=== PATIENT | female | born 1950 | race Caucasian/White ===

== ENCOUNTER → 2018-12-26 11:46 | Outpatient (CLI) | payer MEDICARE, SELFPAY ==
[2018-12-26 12:12] LABS: Influenza A and B by PCR Rapid Negative (Negative)
== END ==
PROVIDERS: Family Provider Family Medicine; PCP Family Medicine; Visit Provider Physician Assistant
DX: R68.89 Other general symptoms and signs (principal)
CPT/HCPCS: 87400

== ENCOUNTER → 2019-03-10 12:14 | Outpatient (CLI) | payer MEDICARE, SELFPAY ==
--- NOTE | 2019-03-10 12:18 | DI.RAD.S_ITS ---
PROCEDURE: XR CERVICAL SPINE 2V OR 3V INDICATIONS: ongoing neck pain, worse TECHNIQUE: 3 view(s) of the cervical spine were acquired. COMPARISON: None. FINDINGS: Bones: No fractures or dislocations to the T1 level. There is a moderately severe degree of degenerative disc disease at C5-6 and C6-7, without subluxation. Facet osteoarthritis over these 3 segments also is moderate in severity. The lateral masses of C1 appear intact on the odontoid view. No suspicious bony lesions. Soft tissues: No prevertebral soft tissue swelling. IMPRESSION: Moderate to moderately severe degenerative disc disease and facet osteoarthritis along the middle third of the cervical spine, but no prior trauma is seen. Dictated by: Seth Baron M.D. on 03/10/2019 at 13:20 Approved by: Seth Baron M.D. on 03/10/2019 at 13:21
== END ==
PROVIDERS: PCP Nurse Practitioner Family; Visit Provider Nurse Practitioner Family
DX: M50.322 Other cervical disc degeneration at C5-C6 level (principal); M47.812 Spondylosis without myelopathy or radiculopathy, cervical region
CPT/HCPCS: 72040

== ENCOUNTER → 2019-03-15 12:11 | Outpatient (CLI) | payer MEDICARE, SELFPAY ==
--- NOTE | 2019-03-15 12:14 | DI.MG.S_ITS ---
BILATERAL DIGITAL SCREENING MAMMOGRAM 3D/2D WITH CAD: 03/15/2019 CLINICAL: Routine screening. Comparison is made to exams dated: 03/06/2017 mammogram, 01/24/2008 mammogram, and 07/08/2006 mammogram - [facility]. There are scattered fibroglandular elements in both breasts. Current study was also evaluated with a Computer Aided Detection (CAD) system. No significant masses, calcifications, or other findings are seen in either breast. There has been no significant interval change. IMPRESSION: NEGATIVE There is no mammographic evidence of malignancy. A 1 year screening mammogram is recommended. This exam was interpreted at Station ID: [id number]. NOTE: For mammograms, a report in lay terms will be sent to the patient. Approximately 15% of breast malignancies will not be visualized mammographically. In the management of a palpable breast mass, a negative mammogram must not discourage biopsy of a clinically suspicious lesion. Electronically Signed By: Seferino [email or web address]:03/15/2019 16:58:33 letter sent: Normal Exam ACR BI-RADS Category 1: Negative [id number]
== END ==
PROVIDERS: PCP Nurse Practitioner Family; Visit Provider Nurse Practitioner Family
DX: Z12.31 Encounter for screening mammogram for malignant neoplasm of breast (principal)
CPT/HCPCS: 77063; 77067

== ENCOUNTER → 2019-04-21 09:24 | Outpatient (CLI) | payer MEDICARE, SELFPAY ==
[2019-04-21 10:21] LABS: Hematocrit 42.5 % (36-46); Hemoglobin 14.7 g/dL (12.0-16.0); Mean Corpuscular HGB Conc 34.5 % (30-36); Mean Corpuscular Hemoglobin 33.2 PG (26-34); Mean Corpuscular Volume 96.2 fL (80-100); Platelet Count 250 X10^3/uL (150-400); Red Blood Cell Count 4.41 X10^6/uL (4.0-5.2); Red Cell Distribution Width 12.8 % (11.6-14.8); White Blood Cell Count 4.2 X10^3/uL (4.5-11.0)
[2019-04-21 10:30] LABS: HEMOLYSIS < 15 (0-50); Iron 140 ug/dL (37-170)
[2019-04-21 10:32] LABS: Alanine Aminotransferase 38 IU/L (9-52); Albumin 4.6 g/dL (3.5-5.0); Albumin Globulin Ratio 1.3 (1.0-2.8); Alkaline Phosphatase 96 U/L (38-126); Aspartate Aminotransferase 31 IU/L (14-36); Blood Urea Nitrogen 14 mg/dL (7-17); Calcium 9.9 mg/dL (8.4-10.2); Carbon Dioxide 28 mmol/L (22-32); Chloride 103 mmol/L (98-107); Cholesterol 325 mg/dL (140-199); Estimated Glomerular Filt Rate > 60.0 mL/min (>60); Globulin 3.6 g/dL (1.7-4.1); Glucose 94 mg/dL (80-110); HDL Cholesterol 60 mg/dL (40-60); HEMOLYSIS < 15 (0-50); LDL Cholesterol Calculated 221 mg/dL (<100); Potassium 4.4 mmol/L (3.4-5.1); Sodium 141 mmol/L (137-145); Total Protein 8.2 g/dL (6.3-8.2); Triglycerides 220 mg/dL (35-150)
[2019-04-21 10:35] LABS: Hemoglobin A1C% w Est Avg Glu 5.3 % (4.0-6.0)
[2019-04-21 10:40] LABS: Vitamin D 25 Hydroxy (D3) 40.7 ng/mL (30.0-100.0)
[2019-04-21 10:44] LABS: Percent Iron Saturation 45 % (15-50); Total Iron Binding Capacity 314 ug/dL (265-497); Transferrin 277 mg/dL (206-381)
[2019-04-21 10:56] LABS: TSH w/ Reflex to FT4 1.56 uIU/mL (0.47-4.68)
[2019-04-21 10:59] LABS: Ferritin 66.5 ng/mL (11.1-264)
[2019-04-21 11:30] LABS: Folate > 20.0 ng/mL (2.76-20.0); Vitamin B12 918 pg/mL (239-931)
== END ==
PROVIDERS: PCP Nurse Practitioner Family; Visit Provider Nurse Practitioner Family
DX: R53.83 Other fatigue (principal); Z68.31 Body mass index [BMI] 31.0-31.9, adult
CPT/HCPCS: 36415; 80053; 80061; 82306; 82607; 82728; 82746; 83036; 83540; 83550; 84443; 85027

== ENCOUNTER → 2019-05-22 10:44 | Outpatient (CLI) | payer MEDICARE, SELFPAY ==
--- NOTE | 2019-05-22 10:46 | DI.RAD.S_ITS ---
PROCEDURE: XR LUMBAR SPINE MIN 4V INDICATIONS: Fall at home onto low back/sacrum on 05/20 TECHNIQUE: A 74 views of the lumbar spine were acquired. COMPARISON: None. FINDINGS: Bones: 5 nonrib-bearing vertebrae are present. There is normal bony alignment. There is a definite L1 mild to moderate superior endplate vertebral body compression fracture, with approximately 20% height reduction at the middle third of the vertebral body. No suspicious bony lesions. Soft tissues: Overlying bowel gas pattern is normal. No suspicious soft tissue calcifications. Oblique images: No pars defects. IMPRESSION: L1 mild to moderate compression fracture, acute in appearance, and could be further assessed by MR scanning for retropulsion of disc or bone material into the spinal canal in that area if clinically desired. Dictated by: Seth Baron M.D. on 05/22/2019 at 12:07 Approved by: Seth Baron M.D. on 05/22/2019 at 12:09
== END ==
PROVIDERS: PCP Nurse Practitioner Family; Visit Provider Physician Assistant
DX: M54.5 Low back pain (principal); S32.019A Unspecified fracture of first lumbar vertebra, initial encounter for closed fracture; W19.XXXA Unspecified fall, initial encounter
CPT/HCPCS: 72110

== ENCOUNTER → 2019-05-23 14:34 | Outpatient (CLI) | payer MEDICARE, SELFPAY ==
--- NOTE | 2019-05-23 14:38 | DI.MRI.S_ITS ---
PROCEDURE: MR LUMBAR SPINE WO CON INDICATIONS: L1 vertebral fracture. Low back pain post fall TECHNIQUE: Noncontrast sagittal T1 spin echo and T2 fast echo, sagittal STIR, axial T1 and T2 fast spin echo through the lumbar spine. In cases with scoliosis, additional coronal T2 fast spin echo may be performed. COMPARISON: [facility], CR, XR LUMBAR SPINE MIN 4V, 05/22/2019, 11:03. FINDINGS: Image quality: Excellent. Alignment and Curvature: Straightening of the normal lumbar lordosis. Grade 1 anterolisthesis of L3 on L4 Bone Marrow: Marrow is of normal overall signal. L1 compression fracture with mild height loss appears unchanged since 05/22/19 radiograph. There is minimal posterior displacement of the upper posterior vertebral body wall, however no high-grade canal stenosis is seen. Spinal Cord: Conus medullaris terminates at the L1 to level. Visualized cord demonstrates normal signal and size. Paraspinous Soft Tissues: No paravertebral masses. L1-L2: Normal appearance. L2-L3: Normal appearance. L3-L4: Minimal broad-based posterior disc bulge mild facet arthropathy. Mild central canal narrowing. Partial effacement of both lateral recesses with bilaterally symmetric appearance. Mild left foraminal stenosis. No right foraminal narrowing. L4-L5: Broad-based posterior disc bulge and bilateral facet arthropathy. No central canal stenosis. Partial effacement of both lateral recesses with bilaterally symmetric appearance. No left foraminal stenosis. Minimal right foraminal narrowing L5-S1: Broad-based posterior disc bulge bilateral facet arthropathy. Minimal central canal narrowing. Lateral recesses appear patent. No foraminal stenosis. IMPRESSION: L1 compression fracture with minimal posterior displacement of the upper posterior vertebral body wall however no significant canal stenosis. No high-grade canal or foraminal stenoses. Dictated by: Josh Nolasco M.D. on 05/23/2019 at 15:45 Approved by: Josh Nolasco M.D. on 05/23/2019 at 15:51
== END ==
PROVIDERS: PCP Nurse Practitioner Family; Visit Provider Nurse Practitioner Family
DX: S32.019A Unspecified fracture of first lumbar vertebra, initial encounter for closed fracture (principal); M51.26 Other intervertebral disc displacement, lumbar region; M51.27 Other intervertebral disc displacement, lumbosacral region; M47.816 Spondylosis without myelopathy or radiculopathy, lumbar region; M47.817 Spondylosis without myelopathy or radiculopathy, lumbosacral region; W19.XXXA Unspecified fall, initial encounter
CPT/HCPCS: 72148

== ENCOUNTER → 2019-10-03 08:52 | Outpatient (CLI) | payer MEDICARE, SELFPAY ==
[2019-10-03 10:23] LABS: Cholesterol 276 mg/dL (140-199); HDL Cholesterol 66 mg/dL (40-60); LDL Cholesterol Calculated 177 mg/dL (<100); Triglycerides 166 mg/dL (35-150)
== END ==
PROVIDERS: PCP Nurse Practitioner Family; Visit Provider Nurse Practitioner Family
DX: M85.851 Other specified disorders of bone density and structure, right thigh (principal); Z78.0 Asymptomatic menopausal state; S32.010A Wedge compression fracture of first lumbar vertebra, initial encounter for closed fracture; E78.2 Mixed hyperlipidemia
CPT/HCPCS: 36415; 77080; 80061